=== PATIENT | male | born 1965 | race American Indian/Alaskan Native ===

== ENCOUNTER 2019-04-30 09:44 | Emergency (ER) | payer SELFPAY ==
[2019-04-30 10:40] LABS: Hematocrit 24.3 % (35.5-45.6); Hemoglobin 7.8 gm/dl (11.8-15.2); Mean Corpuscular HGB Conc 32 % (32-34); Mean Corpuscular Volume 78 fl (84-94); Platelet Count 415 K/mm3 (140-440); Red Blood Count 3.13 M/mm3 (3.65-5.03); Red Cell Distribution Width 18.7 % (13.2-15.2)
--- NOTE | 2019-04-30 10:40 | Emergency Department Report ---
ED General Adult HPI - General Chief complaint: Weakness Stated complaint: BODY ACHE/WEAKNESS Time Seen by Provider: 04/30/19 10:02 Source: patient Mode of arrival: Ambulatory Limitations: No Limitations - History of Present Illness Initial comments: Patient is a 53-year-old male who presents to emergency room with complaints of generalized body aches and generalized weakness that began a couple days ago. Patient states he was running a lot of errands this week and going to doctor's appointments and just feels fatigued. Patient states he was admitted in the hospital last week at [facility]. He states he was evaluated for chest pain. 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 Pt states his endocarditis was caused from an infected tooth. States while he was admitted he was evaluated by an oral surgeon and had all of his teeth removed due to dental infections. pt states all of his cardiac workup was within normal limits per patient. Patient states he was previously spitting of blood during that time. Pt states that he was anemic and received a blood transfusion during his admission. He states he is no longer spitting up blood. He denies any abdominal pain, nausea, vomiting, diarrhea, melena, hematochezia, hematemesis, fever, chest pain, shortness of breath. He has a past medical history of hypertension and is on warfarin for his mechanical valves. He states his primary care doctor is Dr. Hopkins in [place]. 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 - Related Data Allergies Allergy/AdvReac Type Severity Reaction Status Date / Time No Known Allergies Allergy Verified 04/30/19 09:50 ED Review of Systems ROS: Stated complaint: BODY ACHE/WEAKNESS Other details as noted in HPI Comment: All other systems reviewed and negative ED Past Medical Hx - Past Medical History Previous Medical History?: Yes Hx Hypertension: Yes Hx Diabetes: Yes - Surgical History Past Surgical History?: Yes Additional Surgical History: open heart - Social History Smoking Status: Current Every Day Smoker Substance Use Type: None ED Physical Exam - General Limitations: No Limitations General appearance: alert, in no apparent distress - Head Head exam: Present: atraumatic, normocephalic - Eye Eye exam: Present: normal appearance - ENT ENT exam: Present: mucous membranes moist - Respiratory Respiratory exam: Present: normal lung sounds bilaterally. Absent: respiratory distress, wheezes, rales, rhonchi, stridor, chest wall tenderness, accessory muscle use, decreased breath sounds, prolonged expiratory - Cardiovascular Cardiovascular Exam: Present: regular rate, normal rhythm, clicks - Neurological Exam Neurological exam: Present: alert, oriented X3 - Psychiatric Psychiatric exam: Present: normal affect, normal mood - Skin Skin exam: Present: warm, dry, intact ED Course Vital Signs 04/30/19 04/30/19 09:52 11:32 Temperature 98.5 F Pulse Rate 86 81 Respiratory 18 16 Rate Blood Pressure 113/72 Blood Pressure 118/74 [Right] O2 Sat by Pulse 99 99 Oximetry ED Medical Decision Making - Lab Data Result diagrams: 04/30/19 10:18 04/30/19 10:18 Lab Results 04/30/19 04/30/19 04/30/19 Range/Units 10:18 10:18 10:18 WBC 5.3 (4.5-11.0) K/mm3 RBC 3.13 L (3.65-5.03) M/mm3 Hgb 7.8 L (11.8-15.2) gm/dl Hct 24.3 L (35.5-45.6) % MCV 78 L (84-94) fl MCH 25 L (28-32) pg MCHC 32 (32-34) % RDW 18.7 H (13.2-15.2) % Plt Count 415 (140-440) K/mm3 Lymph % (Auto) Radiology Rn Stark % (Auto) Radiology Rn Eos % (Auto) Radiology Rn Baso % (Auto) Radiology Rn Lymph # Radiology Rn Stark # Radiology Rn Eos # Radiology Rn Baso # Radiology Rn Seg Neutrophils % Radiology Rn Seg Neutrophils # Radiology Rn PT 16.5 H (12.2-14.9) Sec. INR 1.37 H (0.87-1.13) APTT 26.8 (24.2-36.6) Sec. Sodium 139 (137-145) mmol/L Potassium 4.5 (3.6-5.0) mmol/L Chloride 101.9 (98-107) mmol/L Carbon Dioxide 26 (22-30) mmol/L Anion Gap 16 mmol/L BUN 8 L (9-20) mg/dL Creatinine 0.9 (0.8-1.5) mg/dL Estimated GFR > 60 ml/min BUN/Creatinine Ratio 9 % Glucose 96 (75-100) mg/dL Calcium 9.1 (8.4-10.2) mg/dL Phosphorus 3.40 (2.5-4.5) mg/dL Magnesium 1.90 (1.7-2.3) mg/dL Total Bilirubin 0.80 (0.1-1.2) mg/dL AST 21 (5-40) units/L ALT < 5 L (7-56) units/L Alkaline Phosphatase 80 (35-129) units/L Total Protein 7.7 (6.3-8.2) g/dL Albumin 4.2 (3.9-5) g/dL Albumin/Globulin Ratio 1.2 % TSH (0.270-4.200) mlU/mL 04/30/19 Range/Units 10:18 WBC (4.5-11.0) K/mm3 RBC (3.65-5.03) M/mm3 Hgb (11.8-15.2) gm/dl Hct (35.5-45.6) % MCV (84-94) fl MCH (28-32) pg MCHC (32-34) % RDW (13.2-15.2) % Plt Count (140-440) K/mm3 Lymph % (Auto) Stark % (Auto) Eos % (Auto) Baso % (Auto) Lymph # Stark # Eos # Baso # Seg Neutrophils % Seg Neutrophils # PT (12.2-14.9) Sec. INR (0.87-1.13) APTT (24.2-36.6) Sec. Sodium (137-145) mmol/L Potassium (3.6-5.0) mmol/L Chloride (98-107) mmol/L Carbon Dioxide (22-30) mmol/L Anion Gap mmol/L BUN (9-20) mg/dL Creatinine (0.8-1.5) mg/dL Estimated GFR ml/min BUN/Creatinine Ratio % Glucose (75-100) mg/dL Calcium (8.4-10.2) mg/dL Phosphorus (2.5-4.5) mg/dL Magnesium (1.7-2.3) mg/dL Total Bilirubin (0.1-1.2) mg/dL AST (5-40) units/L ALT (7-56) units/L Alkaline Phosphatase (35-129) units/L Total Protein (6.3-8.2) g/dL Albumin (3.9-5) g/dL Albumin/Globulin Ratio % TSH 0.527 (0.270-4.200) mlU/mL - Medical Decision Making Patient is a 53-year-old male who presents to emergency room with complaints of generalized body aches and generalized weakness that began a couple days ago. Patient states he was running a lot of errands this week and going to doctor's appointments and just feels fatigued. Patient states he was admitted in the hospital last week at [facility]. He states he was evaluated for chest pain. He states he has a history of endocarditis in 2013 and has 2 mecha nical valves. Pt states his endocarditis was caused from an infected tooth. States while he was admitted he was evaluated by an oral surgeon and had all of his teeth removed due to dental infections. pt states all of his cardiac workup was within normal limits per patient. Patient states he was previously spitting of blood during that time. Pt states that he was anemic and received a blood transfusion during his admission. He states he is no longer spitting up blood. He denies any abdominal pain, nausea, vomiting, diarrhea, melena, hematochezia, hematemesis, fever, chest pain, shortness of breath. He has a past medical history of hypertension and is on warfarin for his mechanical alvaro ves. He states his primary care doctor is Dr. Hopkins in [place]. 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 vitals are normal. H/H is stable at 7.8/24.3. INR is subtherapeutic at 1.37. discussed results with Dr. Benito who evaluated pt at bedside and discussed results with pt, states that pt may be discharged home with follow up with his steam drier operator and primary care doctor. pt not a candidate for transfusion at this time as H/H is stable, pt states he no longer has any bleeding, and vitals are WNL, pt is not tachycardic or hypotensive. advised pt to follow up with his PCP and steam drier operator in the next 2-3 days. pt given his INR number today and advised to discuss with his steam drier operator. advised to return to the ED immediately for any new or worsening symptoms. Critical care attestation.: If time is entered above; I have spent that time in minutes in the direct care of this critically ill patient, excluding procedure time. ED Disposition Clinical Impression: Generalized weakness, Generalized body aches, Subtherapeutic anticoagulation Anemia Qualifiers: Anemia type: unspecified type Qualified Code(s): D64.9 - Anemia, unspecified Disposition: DC-01 TO HOME OR SELFCARE Is pt being admited?: No Does the pt Need Aspirin: No Condition: Stable Instructions: Anemia (ED) Additional Instructions: please follow up with your primary care doctor and steam drier operator in the next 2-3 days. your INR today is 1.37 and your hemoglobin is 7.8 please discuss these results with your steam drier operator. Return to the ED immediately for any new or worsening symptoms. Referrals: your, primary care doctor [Other] - 2-3 Days your, steam drier operator [Other] - 2-3 Days Time of Disposition: 11:12 Print Language: MOHAWK
[2019-04-30 10:46] LABS: INR 1.37 (0.87-1.13)
[2019-04-30 10:47] LABS: Partial Thromboplastin Time 26.8 Sec. (24.2-36.6)
[2019-04-30 10:50] LABS: Alanine Aminotransferase < 5 units/L (7-56); Albumin 4.2 g/dL (3.9-5); BUN/Creatinine Ratio 9; Blood Urea Nitrogen 8 mg/dL (9-20); Calcium 9.1 mg/dL (8.4-10.2); Hemolysis Index 9
[2019-04-30 11:33] VITALS: BP 118/74
[2019-04-30 11:36] LABS: Basophils % (Manual) 0 % (0.0-1.8); Eosinophils % (Manual) 0 % (0.0-4.3); Total Cells Counted 100
[2019-04-30 11:37] LABS: Hypochromasia 2+
[2019-04-30 11:38] LABS: Schistocytes 1+; Target Cells Few
[2019-04-30 11:39] LABS: Platelet Estimate Consistent w Auto
== END 2019-04-30 11:32 | disposition home or self-care (01) ==
LOC: ED 09:44
DX: R53.1 Weakness (principal); D64.9 Anemia, unspecified; R79.1 Abnormal coagulation profile; R07.89 Other chest pain; I10 Essential (primary) hypertension; E11.9 Type 2 diabetes mellitus without complications; F17.200 Nicotine dependence, unspecified, uncomplicated; Z98.890 Other specified postprocedural states
CPT/HCPCS: 36415; 80053; 83735; 84100; 84443; 85007; 85025; 85610; 85730; 86900; 86901

== ENCOUNTER 2021-09-20 03:04 | Emergency (ER) | payer OTHER ==
[2021-09-20] MEDS ORDERED: OXYMETAZOLINE 0.05% NASAL SPRAY NS ONE (03:19)
[2021-09-20 05:11] LABS: Hematocrit 35.4 % (35.5-45.6); Hemoglobin 11.3 gm/dl (11.8-15.2); Mean Corpuscular HGB Conc 32 % (32-34); Mean Corpuscular Volume 93 fl (84-94); Red Blood Count 3.82 M/mm3 (3.65-5.03); Red Cell Distribution Width 19.6 % (13.2-15.2)
[2021-09-20 05:30] LABS: Blood Urea Nitrogen 11 mg/dL (9-20); Calcium 9.2 mg/dL (8.4-10.2); Hemolysis Index 5
[2021-09-20 05:33] LABS: Platelet Count 77 K/mm3 (140-440)
[2021-09-20 05:34] LABS: BUN/Creatinine Ratio 16
[2021-09-20 05:35] LABS: INR 0.99 (0.87-1.13)
[2021-09-20 05:36] LABS: Partial Thromboplastin Time 27.7 Sec. (24.2-36.6)
--- NOTE | 2021-09-20 06:39 | Emergency Department Report ---
ED ENT HPI - General Chief complaint: Nosebleed Stated complaint: NOSE BLEED Time Seen by Provider: 09/20/21 06:36 Source: patient Mode of arrival: Ambulatory Limitations: No Limitations - History of Present Illness Initial comments: 55-year-old male presents to the ER today with complaints of nosebleed. Patient states that the bleeding started yesterday. He states that he was just relaxing when his nose recently started to bleed. Mainly from the left nare. He states that his been bleeding constantly since yesterday. He denies any injury to his nose, he has not had any recent sneezing, URI symptoms. He denies similar symptoms in the past. He is on Coumadin for which he has been on since 2013 secondary to valve replacement surgery. He states that he takes 6 mg daily and has been compliant with taking it every day. Other than the nosebleeds he denies any other current symptoms. MD complaint: epistaxis -: days(s) (1) - Related Data Allergies Allergy/AdvReac Type Severity Reaction Status Date / Time No Known Allergies Allergy Verified 04/30/19 09:50 ED Dental HPI - General Chief complaint: Nosebleed Stated complaint: NOSE BLEED Time Seen by Provider: 09/20/21 06:36 Source: patient Mode of arrival: Ambulatory Limitations: No Limitations - Related Data Allergies Allergy/AdvReac Type Severity Reaction Status Date / Time No Known Allergies Allergy Verified 04/30/19 09:50 ED Review of Systems ROS: Stated complaint: NOSE BLEED Other details as noted in HPI Comment: All other systems reviewed and negative Constitutional: denies: chills, diaphoresis, fever, malaise, weakness Eyes: denies: eye pain, eye discharge, vision change ENT: epistaxis. denies: ear pain, throat pain, dental pain, hearing loss, congestion Respiratory: denies: cough, shortness of breath, wheezing Cardiovascular: denies: chest pain, palpitations, dyspnea on exertion, orthopnea, edema, syncope, paroxysmal nocturnal dyspnea Gastrointestinal: denies: abdominal pain, nausea, diarrhea, constipation, hem atemesis, melena, hematochezia Genitourinary: denies: urgency, dysuria, frequency, hematuria, discharge, testicular pain, testicular mass Musculoskeletal: denies: back pain, joint swelling, arthralgia, myalgia Skin: denies: rash, lesions, change in color, change in hair/nails, pruritus Neurological: denies: headache, weakness, numbness, paresthesias, confusion, abnormal gait, vertigo Psychiatric: denies: anxiety, depression, auditory hallucinations, visual hallucinations, homicidal thoughts, suicidal thoughts Hematological/Lymphatic: denies: easy bleeding, easy bruising, swollen glands ED Past Medical Hx - Past Medical History Previous Medical History?: Yes Hx Hypertension: Yes Hx Diabetes: Yes Additional medical history: Neuropathy - Surgical History Past Surgical History?: Yes Hx Open Heart Surgery: Yes Additional Surgical History: open heart - Social History Smoking Status: Never Smoker Substance Use Type: None ED Physical Exam - General Limitations: No Limitations General appearance: alert, in no apparent distress - Head Head exam: Present: atraumatic, normocephalic, normal inspection - Eye Eye exam: Present: normal appearance, PERRL, EOMI Pupils: Present: normal accommodation - ENT ENT exam: Present: other (mild active bleeding noted left nostril, exact point of bleeding uncertain; No septal hematoma or deformity or ttp noted to nostril) - Expanded ENT Exam Expanded Mouth exam: Present: other (mild bleeding in oropharynx ) Throat exam: Positive: normal inspection ED Course Vital Signs 09/20/21 09/20/21 09/20/21 03:11 06:45 08:11 Temperature 98.6 F 97.6 F 98.2 F Pulse Rate 99 H 87 80 Respiratory 18 17 16 Rate Blood Pressure 147/99 Blood Pressure 125/82 123/75 [Right] O2 Sat by Pulse 97 98 98 Oximetry ED Medical Decision Making - Lab Data Result diagrams: 09/20/21 05:03 09/20/21 05:03 Laboratory Tests 09/20/21 09/20/21 09/20/21 05:03 05:03 05:03 WBC 4.3 L RBC 3.82 Hgb 11.3 L Hct 35.4 L MCV 93 MCH 30 MCHC 32 RDW 19.6 H Plt Count 77 L Garza % (Auto) Matching Machine Operator PT 14.2 INR 0.99 APTT 27.7 Sodium 141 Potassium 3.9 Chloride 104.8 Carbon Dioxide 24 Anion Gap 16 BUN 11 Creatinine 0.7 L Estimated GFR > 60 BUN/Creatinine Ratio 16 Glucose 89 Calcium 9.2 - Medical Decision Making 0741: Labs reviewed -CBC unremarkable, CMP also unremarkable and INR subtherapeutic at 0.99. According to the cover mat machine operator midlevel provider, multiple sprays of Afrin was used, and also a Rhino Rocket was attempted but unsuccessful. When I saw the patient this morning, bleeding had slowed down significantly, but while history it started to bleed again. Rhino Rocket to left knee was applied by Dr. Sheikh, and patient was observed for about 30 to 40 minutes. Bleeding had resolved after placement of Rhino Rocket. Repeat vital signs are stable. Patient currently well-appearing, nontoxic and not in any distress. Other than the discomfort from the Rhino Rocket he has no other complaints. After dis cussing with Dr. Sheikh, it was recommended that patient continue taking his Coumadin. He was informed to return to the ER in 2 to 3 days to have the packing removed. He was also given referral to ENT. He understands that if anything worsens or changes return immediately to the ER. Patient was stable at time of discharge Critical care attestation.: If time is entered above; I have spent that time in minutes in the direct care of this critically ill patient, excluding procedure time. ED Disposition Clinical Impression: Epistaxis Disposition: 01 HOME / SELF CARE / HOMELESS Is pt being admited?: No Does the pt Need Aspirin: No Condition: Stable Instructions: Nosebleed, [id number] Additional Instructions: Return to ED in 2-3 days for nasal packing removal. You can also follow up with ENT, and one will be listed on your discharge instructions. Continue taking you r coumadin daily. Return sooner if anything worsens or changes. Referrals: RENAN URIBE MD [Staff Physician] - 2-3 Days Forms: Work/School Release Form(ED) Time of Disposition: 07:43
[2021-09-20 07:57] LABS: Anisocytosis 1+; Total Cells Counted 100
[2021-09-20 07:58] LABS: Platelet Estimate Consistent w Auto
[2021-09-20 08:15] VITALS: BP 123/75
== END 2021-09-20 08:15 | disposition home or self-care (01) ==
LOC: ED 03:04
DX: R04.0 Epistaxis (principal); I10 Essential (primary) hypertension; E11.8 Type 2 diabetes mellitus with unspecified complications; Z98.890 Other specified postprocedural states; G62.9 Polyneuropathy, unspecified
CPT/HCPCS: 36415; 80048; 85007; 85025; 85610; 85730; 99283

== ENCOUNTER 2021-09-22 09:10 | Emergency (ER) | payer OTHER ==
[2021-09-22 09:33] VITALS: BP 117/67
--- NOTE | 2021-09-22 10:47 | Emergency Department Report ---
ED General Adult HPI - General Chief complaint: Recheck/Abnormal Lab/Rx Stated complaint: KAVITHA REMOVAL Source: patient Mode of arrival: Ambulatory Limitations: No Limitations - History of Present Illness Initial comments: 55-year-old male presents to the ED with left Rhino Rocket . Patient had a Rhino Rocket placed x2 days ago after for nosebleed. Patient is alert and oriented x4. Patient current take Coumadin. No further nosebleeds noted at present. Patient denies any headache ,nausea ,vomiting ,or chills . No acute distress noted no ill appearance noted. - Related Data Allergies Allergy/AdvReac Type Severity Reaction Status Date / Time No Known Allergies Allergy Verified 04/30/19 09:50 ED Review of Systems ROS: Stated complaint: KAVITHA REMOVAL Other details as noted in HPI Constitutional: denies: chills, fever Eyes: denies: eye pain, eye discharge, vision change ENT: denies: ear pain, throat pain Respiratory: denies: cough, shortness of breath, wheezing Cardiovascular: denies: chest pain, palpitations Endocrine: no symptoms reported Gastrointestinal: denies: abdominal pain, nausea, diarrhea Genitourinary: denies: urgency, dysuria Musculoskeletal: denies: back pain, joint swelling, arthralgia Skin: denies: rash, lesions Neurological: denies: headache, weakness, paresthesias Psychiatric: denies: anxiety, depression Hematological/Lymphatic: denies: easy bleeding, easy bruising ED Past Medical Hx - Past Medical History Hx Hypertension: Yes Hx Diabetes: Yes Additional medical history: Neuropathy - Surgical History Hx Open Heart Surgery: Yes Additional Surgical History: open heart - Social History Smoking Status: Never Smoker Substance Use Type: None ED Physical Exam - General Limitations: No Limitations General appearance: alert, in no apparent distress - Head Head exam: Present: atraumatic, normocephalic - Eye Eye exam: Present: normal appearance - ENT ENT exam: Present: mucous membranes moist - Neck Neck exam: Present: normal inspection - Respiratory Respiratory exam: Present: normal lung sounds bilaterally. Absent: respiratory distress - Cardiovascular Cardiovascular Exam: Present: regular rate, normal rhythm. Absent: systolic murmur, diastolic murmur, rubs, gallop - GI/Abdominal GI/Abdominal exam: Present: soft, normal bowel sounds - Rectal Rectal exam: Present: deferred - Extremities Exam Extremities exam: Present: normal inspection - Back Exam Back exam: Present: normal inspection - Neurological Exam Neurological exam: Present: alert, oriented X3 - Psychiatric Psychiatric exam: Present: normal affect, normal mood - Skin Skin exam: Present: warm, dry, intact, normal color. Absent: rash ED Course Vital Signs 09/22/21 09:31 Temperature 98.6 F Pulse Rate 100 H Respiratory 20 Rate Blood Pressure 117/67 [Left] O2 Sat by Pulse 100 Oximetry ED Medical Decision Making - Medical Decision Making 55-year-old male presents to the ED with left Rhino Rocket . Patient had a Rhino Rocket placed x2 days ago after for nosebleed. Patient is alert and orien pito x4. Patient current take Coumadin. No further nosebleeds noted at present. Patient denies any headache ,nausea ,vomiting ,or chills . Right nostril clear and patent. Both nares are patent and clear. Removed left Rhino Rocket. Observe the patient for 1 hour. No nosebleeds noted. Patient is to follow-up with ENT has previous to schedule. I have spoken with the patient and/or caregiver. I have explained the patient condition, diagnosis and treatment plan based on information available to me at this time. I have answered the patient and/caregiver questions and addressed any concerns. The patient and/or caregiver have has good an understanding of the patient diagnosed condition and treatment plan as can be expected at this point. The vital signs have been stable. The patient condition is stable and appropriate for discharge from the emergency department. The patient and caregiver has been given detailed instruction in a written format and expressed understanding of discharge instruction. The patient/or caregiver are aware that any significant change in condition or worsening of symptoms should prompt an immediate return to the this or the closest emergency department or call to [facility] Critical care attestation.: If time is entered above; I have spent that time in minutes in the direct care of this critically ill patient, excluding procedure time. ED Disposition Clinical Impression: Epistaxis, Encounter for removal of nasal packing Disposition: HOME / SELF CARE / HOMELESS Is pt being admited?: No Does the pt Need Aspirin: No Condition: Stable Instructions: Nosebleed, Adult Additional Instructions: Return to ED for any further nosebleed Keep appointment with ENT has previous schedule Return to ED for any worsening symptoms Referrals: Ye ROSARIO [Other] - 3-5 Days Time of Disposition: 11:04
== END 2021-09-22 11:36 | disposition home or self-care (01) ==
LOC: ED 09:10
DX: R04.0 Epistaxis (principal); Z48.00 Encounter for change or removal of nonsurgical wound dressing
CPT/HCPCS: 99282

== ENCOUNTER 2021-10-25 22:39 | Emergency (ER) | payer SELFPAY ==
[2021-10-26 01:05] VITALS: BP 137/84
[2021-10-26] MEDS ORDERED: chlorproMAZINE 25 MG in SODIUM CHLORIDE 0.9% 50 ML IV ONE (02:34)
[2021-10-26] MEDS ORDERED: SODIUM CHLORIDE 0.9% 1000 ML 1,000 ML IV ONE (02:34)
[2021-10-26] MEDS ORDERED: FAMOTIDINE 20 MG/2 ML INJ IV ONE (02:35)
[2021-10-26] MEDS ORDERED: LIDOCAINE VISCOUS 2% 15 ML ORAL LIQD PO ONE (02:36)
[2021-10-26] MEDS ORDERED: ALUM-MAG HYDROXIDE-SIMETHICONE 200-200-20MG/5ML ORAL LIQD 30 ML PO ONE (02:36)
--- NOTE | 2021-10-26 03:09 | XRay Report ---
CHEST 1 VIEW INDICATION: chest pain. COMPARISON: None. FINDINGS: Support devices: None. Heart: Prior sternotomy with valve replacement. Overall heart size is normal. Lungs/Pleura: Mild bibasilar opacities are likely atelectatic. No pleural abnormality. IMPRESSION: 1. No acute findings. Signer Name: Chet Richey MD Signed: 10/26/2021 3:05 AM Workstation Name: [id number]
[2021-10-26 03:17] LABS: Hematocrit 34.5 % (35.5-45.6); Hemoglobin 10.9 gm/dl (11.8-15.2); Mean Corpuscular HGB Conc 32 % (32-34); Mean Corpuscular Volume 85 fl (84-94); Platelet Count 125 K/mm3 (140-440); Red Blood Count 4.08 M/mm3 (3.65-5.03)
[2021-10-26 03:41] LABS: Alanine Aminotransferase 28 units/L (7-56); Albumin 4.6 g/dL (3.9-5); Blood Urea Nitrogen 5 mg/dL (9-20); Calcium 9.3 mg/dL (8.4-10.2); Hemolysis Index 34
[2021-10-26 03:43] LABS: Red Cell Distribution Width 21.2 % (13.2-15.2)
[2021-10-26 04:06] LABS: BUN/Creatinine Ratio 7
--- NOTE | 2021-10-26 04:40 | Emergency Department Report ---
ED General Adult HPI - General Chief complaint: Medical Clearance Stated complaint: HICCUPS Source: patient Mode of arrival: Ambulatory Limitations: No Limitations - History of Present Illness Initial comments: Patient is a 55-year-old -Citizen Of [place] male with history of hypertension, zxr-ghrxada-hsfxckyrq diabetes, GERD, coronary artery disease status post CABG and cardiac valve replacement who presents to the ED with complaint of acute onset persistent hiccups, nausea and vomiting and burning epigastric pain after eating highly spicy food over 12 hours ago. Patient states that because of persistent hiccups, nausea and vomiting, he has not been able to eat anything or drink any fluids because of worsening symptoms. Patient denies chest pain, shortness of breath, fever, chills, diaphoresis, cough, sore throat, headache, back pain, diarrhea, dysuria, hemoptysis or hematemesis. MD Complaint: Persistent intermittent hiccups; burning epigastric discomfort -: Sudden, hour(s) (12) Location: chest, abdomen (epigastric ) Radiation: abdomen (epigastric and chest wall), other (throat) Severity scale (0 -10): 3 Quality: burning, dull Consistency: intermittent Improves with: none Worsens with: other (Hiccups, nausea and vomiting) Associated Symptoms: denies other symptoms, loss of appetite, malaise, nausea/vomiting. denies: confusion, chest pain, cough, diaphoresis, fever/chills, headaches, rash, seizure, shortness of breath, syncope, weakness Treatments Prior to Arrival: none - Related Data Previous Rx's Medication Instructions Recorded Last Taken Type Famotidine [Pepcid] 20 mg PO BID #30 tablet 10/26/21 Unknown Rx Ondansetron [Zofran Odt] 4 mg PO Q8HR PRN #15 tab.rapdis 10/26/21 Unknown Rx Allergies Allergy/AdvReac Type Severity Reaction Status Date / Time No Known Allergies Allergy Verified 04/30/19 09:50 ED Review of Systems ROS: Stated complaint: HICCUPS Other details as noted in HPI Constitutional: denies: chills, fever Eyes: denies: eye pain, eye discharge, vision change ENT: denies: ear pain, throat pain Respiratory: other (Hiccups). denies: cough, shortness of breath, wheezing Cardiovascular: denies: chest pain, palpitations Endocrine: no symptoms reported Gastrointestinal: abdominal pain (Burning epigastric discomfort), nausea, vomiting. denies: diarrhea, hematemesis, melena, hematochezia Genitourinary: denies: urgency, dysuria Musculoskeletal: denies: back pain, joint swelling, arthralgia Skin: denies: rash, lesions Neurological: denies: headache, weakness, paresthesias Psychiatric: denies: anxiety, depression Hematological/Lymphatic: denies: easy bleeding, easy bruising ED Past Medical Hx - Past Medical History Previous Medical History?: Yes Hx Hypertension: Yes Hx Heart Attack/AMI: Yes (Cardiac valve replacement) Hx Diabetes: Yes Additional medical history: Neuropathy - Surgical History Hx Open Heart Surgery: Yes Additional Surgical History: open heart - Social History Smoking Status: Never Smoker Substance Use Type: None - Medications Home Medications: Home Medications Medication Instructions Recorded Confirmed Last Taken Type Famotidine [Pepcid] 20 mg PO BID #30 tablet 10/26/21 Unknown Rx Ondansetron [Zofran Odt] 4 mg PO Q8HR PRN #15 tab.rapdis 10/26/21 Unknown Rx ED Physical Exam - General Limitations: No Limitations General appearance: alert, in no apparent distress - Head Head exam: Present: atraumatic, normocephalic, normal inspection - Eye Eye exam: Present: normal appearance, PERRL, EOMI Pupils: Present: normal accommodation - ENT ENT exam: Present: normal exam, normal orophraynx, mucous membranes moist, TM's normal bilaterally, normal external ear exam - Neck Neck exam: Present: normal inspection, full ROM. Absent: tenderness - Respiratory Respiratory exam: Present: normal lung sounds bilaterally. Absent: respiratory distress, wheezes, rales, rhonchi, chest wall tenderness, accessory muscle use, decreased breath sounds, prolonged expiratory - Cardiovascular Cardiovascular Exam: Present: normal rhythm, tachycardia, normal heart sounds. Absent: systolic murmur, diastolic murmur, rubs, gallop - GI/Abdominal GI/Abdominal exam: Present: soft, normal bowel sounds. Absent: tenderness, guarding, rebound, hyperactive bowel sounds, hypoactive bowel sounds, mass - Extremities Exam Extremities exam: Present: normal inspection, full ROM, normal capillary refill - Back Exam Back exam: Present: normal inspection, full ROM. Absent: tenderness, CVA tenderness (R), CVA tenderness (L), muscle spasm, vertebral tenderness - Neurological Exam Neurological exam: Present: alert, oriented X3, CN II-XII intact, normal gait, reflexes normal - Psychiatric Psychiatric exam: Present: normal affect, normal mood, anxious - Skin Skin exam: Present: warm, dry, intact, normal color. Absent: rash ED Course Vital Signs 10/26/21 00:54 Temperature 98.9 F Pulse Rate 110 H Respiratory 20 Rate Blood Pressure 137/84 [Right] O2 Sat by Pulse 97 Oximetry ED Medical Decision Making - Lab Data Result diagrams: 10/26/21 02:46 10/26/21 02:46 - Radiology Data Radiology results: report reviewed, image reviewed [facility] [address] [place] [address] XRay Report Signed Patient: HAYDEN DURANT MR#: [id number] : 1965 Acct:[id number] Age/Sex: 55 / M ADM Date: 10/25/21 Loc: ED Attending Dr: Ordering Physician: AURELIA BURRELL Date of Service: 10/26/21 Procedure(s): XR chest 1V ap Accession Number(s): [id number] cc: AURELIA BURRELL Fluoro Time In Minutes: CHEST 1 VIEW INDICATION: chest pain. COMPARISON: None. FINDINGS: Support devices: None. Heart: Prior sternotomy with valve replacement. Overall heart size is normal. Lungs/Pleura: Mild bibasilar opacities are likely atelectatic. No pleural abnormality. IMPRESSION: 1. No acute findings. Signer Name: Chet Richey MD Signed: 10/26/2021 3:05 AM Workstation Name: [id number] Transcribed By: RADHA Dictated By: Chet Richey MD Electronically Authenticated By: Chet Richey MD Signed Date/Time: 10/26/21304 DD/ 030 TD/TT: - Medical Decision Making This is a 55-year-old -Citizen Of [place] male with history of hypertension, byu-zvsypvk-dpazzggss diabetes, GERD, coronary artery disease status post CABG and cardiac valve replacement who presents to the ED with complaint of acute onset persistent hiccups, nausea and vomiting and burning epigastric pain after eating highly spicy food over 12 hours ago. Patient states that because of persistent hiccups, nausea and vomiting, he has not been able to eat anything or drink any fluids because of worsening symptoms. In the ED, patient is alert an d oriented x3 and is not in any distress. Patient is however tachycardic but afebrile in triage. Lab test results were reviewed and are all nonactionable. Chest x-ray showed no acute cardiopulmonary abnormalities or pneumonitis. Patient was treated in the ED for hiccups and GERD complications and also given normal saline 1 L IV bolus x1. On reevaluation, patient felt better, tachycardia resolved and patient hiccups also resolved. Patient was discharged home on antacids and antiemetics and advised to follow-up with his primary care physician in 3 to 5 days for reevaluation. Patient was advised return to the ED immediately if symptoms get worse. - Differential Diagnosis Hiccups; dehydration; GERD; ACS; pneumonia; Critical care attestation.: If time is entered above; I have spent that time in minutes in the direct care of this critically ill patient, excluding procedure time. ED Disposition Clinical Impression: Intractable hiccoughs, Nausea and vomiting in adult patient GERD (gastroesophageal reflux disease) Qualifiers: Esophagitis presence: esophagitis presence not specified Qualified Code(s): K21.9 - Gastro-esophageal reflux disease without esophagitis Disposition: 01 HOME / SELF CARE / HOMELESS Is pt being admited?: No Does the pt Need Aspirin: No Condition: Stable Instructions: Nausea and Vomiting, Adult, [id number], Gastroesophageal Reflux Disease, Adult, [id number], Food Choices for Gastroesophageal Reflux Disease, Adult, [id number] Additional Instructions: Take medication with food, drink plenty of fluids and follow-up with your [facility] care physician in 7 to 10 days for reevaluation. Chest x-ray is unremarkable. All lab test results were reviewed and are all nonactionable. Return to the ED immediately if symptoms get worse. Prescriptions: Famotidine [Pepcid] 20 mg PO BID #30 tablet Ondansetron [Zofran Odt] 4 mg PO Q8HR PRN #15 tab.rapdis PRN Reason: Nausea Referrals: [facility] [Provider Group] - 7-10 days Time of Disposition: 04:45 Print Language: BENINESE
[2021-10-26 04:45] LABS: Eosinophils % (Manual) 0 % (0.0-4.3); Total Cells Counted 100; Toxic Granulation Few
[2021-10-26 04:46] LABS: Anisocytosis 1+; Hypochromasia 1+; Platelet Estimate Consistent w Auto
== END 2021-10-26 06:08 | disposition home or self-care (01) ==
LOC: ED 22:39
DX: K21.9 Gastro-esophageal reflux disease without esophagitis (principal); R11.2 Nausea with vomiting, unspecified; I10 Essential (primary) hypertension; Z98.890 Other specified postprocedural states; Z79.899 Other long term (current) drug therapy
CPT/HCPCS: 36415; 71045; 80053; 84484; 85007; 85025; 96365; 96375; 99284; J3230; J3490; J7030; Q0162